=== PATIENT | female | born 1955 | race Caucasian/White ===

== ENCOUNTER 2017-07-14 13:39 | Emergency (ER) | payer OTHER ==
--- NOTE | 2017-07-14 15:00 | RAD ---
RIGHT HIP TWO VIEWS: HISTORY: Fall. Right hip injury. FINDINGS: There is complete loss of joint space with prominent subchondral sclerosis, osteophytosis, and subco rtical cystic change on each side of the joint. There is flattening and remodeling of the femoral h ead. No displaced fractures are apparent. IMPRESSION: Advanced degenerative changes of the right hip with flattening of the femoral head. Please see separate report regarding AP pelvis radiograph. POS: LEONID
--- NOTE | 2017-07-14 15:04 | RAD ---
AP PELVIS ONE VIEW: HISTORY; Fall. Pelvic injury. FINDINGS: Left hip prosthesis is in place. There is cortical irregularity with mild separation through the me dial portion of the acetabulum with approximately 0.8 cm lucency surrounding the medial margin of th e acetabular component of the left hip prosthesis. Osseous structures are demineralized. There are degenerative changes of the sacroiliac joints. Severe degenerative changes of the right hip are ap parent and better detailed on dedicated right hip radiograph. IMPRESSION: 1. Fracture of the medial aspect left acetabulum has occurred since 2012, although exact age is inde terminate. 2. Severe degenerative changes of the right hip. Findings were called to Dr. Solitario in the [facility] at 1441 hours. Code CR POS: [id number]
--- OUTSIDE RECORDS SUMMARY | 2017-07-14 15:05 | XMS | Clinical Summary ---
:1955 Author Organization [facility] Address [address] [place] [id number] Phone Care Team Providers Name Role Phone , Primary Care Provider Unavailable Allergies Not on File Current Medications Not on file Active Problems Not on file Encounters Date Type Specialty Care Team Description 07/12/2017 Orders Only Wound Care Macrina Galeana MD Arrived 06/14/2017 Orders Only Wound Care Macrina Galeana MD Arrived 05/31/2017 Orders Only Wound Care Macrina Galeana MD 05/17/2017 Orders Only Wound Care Macrina Galeana MD 05/03/2017 Orders Only Wound Care Macrina Galeana MD 04/19/2017 Orders Only Wound Care Macrina Galeana MD from Last 3 Months Social History Tobacco Use Types Packs/Day Years Used Date Never Assessed Sex Assigned at Date Recorded Not on file Last Filed Vital Signs Not on file Plan of Treatment Health Maintenance Due Date Last Done Comments INFLUENZA VACCINE 06/12/2017 Results Not on filefrom Last 3 Months
== END 2017-07-14 15:15 | disposition home or self-care (01) ==
LOC: SCSER 13:39
DX: S39.011A Strain of muscle, fascia and tendon of abdomen, initial encounter (principal); S32.402D Unspecified fracture of left acetabulum, subsequent encounter for fracture with routine healing; I48.91 Unspecified atrial fibrillation; W19.XXXA Unspecified fall, initial encounter
CPT/HCPCS: 72170

== ENCOUNTER 2017-08-24 11:47 | Outpatient (CLI) | payer OTHER ==
[2017-08-24 13:03] LABS: PTT 47.6 SEC (22.9-36.1); Prothrombin Time 28.7 SEC (12.0-14.7)
[2017-08-24 13:11] LABS: Chloride 104 mmol/L (98-107)
[2017-08-24 13:20] LABS: BUN (Urea Nitrogen) 21 mg/dL (9.8-20.1); Calc. Creatinine Clearance 0 mL/min (70-130); Calcium 9.7 mg/dL (7.8-10.44); Carbon Dioxide 27 mmol/L (23-31); Estimated GFR-MDRD 51
[2017-08-24 13:52] LABS: Anion Gap 11 mmol/L (10-20)
== END 2017-08-24 11:48 | disposition home or self-care (01) ==
LOC: LABBT 11:47
PROVIDERS: ATTEND Internal Medicine Cardiovascular Disease
DX: Z01.812 Encounter for preprocedural laboratory examination (principal); I48.1 Persistent atrial fibrillation
CPT/HCPCS: 80048; 85610; 85730

== ENCOUNTER 2017-08-25 05:58 | Day surgery (SDC) | payer OTHER ==
[2017-08-24 11:59] VITALS: BMI 28.7
[2017-08-25] MEDS ORDERED: Diprivan 20 ML ONE (07:27)
[2017-08-25] MEDS ORDERED: Glycopyrrolate 0.2 MG/ML 5 ML SYRINGE ONE (07:28)
--- NOTE | 2017-08-25 08:42 | OP ---
DATE OF PROCEDURE: 08/25/2017 INDICATION FOR PROCEDURE: A 62-year-old female status post atrial fibrillation ablation who has recu rrent atrial fibrillation and was advised by the senior sustainability advisor to undergo a cardioversion of at rial fibrillation. She has been maintained on Xarelto as well as Multaq. She was taken to the [facility] where she underwent short acting propofol with one attempt at 100 joules she did not convert to sinus rhythm following this, with possibly some degree of atrial flutter, but she did not convert . I then attempted a second attempt at 250 joules and we were successful at cardioverting her withou t any difficulties or complication. She now remains in sinus rhythm with a heart rate in the 60s.
--- NOTE | 2017-08-25 12:45 | DIS ---
This is an outpatient procedure on 08/25/2017 She was seen in the outpatient facility to undergo elective electrical cardioversion of atrial fibril lation back to sinus rhythm. She actually had undergone an ablation for atrial fibrillation on 07/08. She had been resumed on her Multaq and Xarelto at the procedure. She was then unfortunately converted back to atrial fibrillation and then was seen by labor trainer, she was advised to un dergo an electrical cardioversion of her atrial fibrillation and this was performed today. OTHER DIAGNOSES: Include paroxysmal atrial fibrillation, history of peptic ulcer disease, venous ins ufficiency of lower extremity cellulitis, obesity, hypertension and diverticulosis. She has had a hi story of former smoking and she has history of pyoderma gangrenosum. DISCHARGE DIAGNOSES: Include paroxysmal atrial fibrillation, history of peptic ulcer disease, venous insufficiency of lower extremity cellulitis, obesity, hypertension and diverticulosis. She has had a history of former smoking and she has history of pyoderma gangrenosum. PROCEDURES IN HOSPITAL: Included electrical cardioversion of atrial fibrillation. DISCHARGE MEDICATIONS: The same as her admission medications. These include pantoprazole 40 mg a da y, multivitamins, fish oil, hydrocodone 5 mg/acetaminophen 1 tablet q.4 hours p.r.n. for pain, Neuron tin 300 mg 2 tablets b.i.d., Multaq 400 mg 1 b.i.d., metoprolol ER 50 mg 1 every day, aspirin 325 mg a day, and Xarelto 20 mg q.p.m. We will at this time decrease the aspirin to 81 mg a day. There were no complications or difficulties encountered. She underwent the procedure without any sig nificant complications. During the first attempt, it was at 100 joules and now successfully converte d her with an increased up to 250 joules and then cardioverted her successfully with the attempt to 2 50 joules without complications or difficulties. I will see her back in the office in a month. She will continue her routine followups with labor trainer.
[2017-08-25] MEDS ORDERED: Propofol 200 MG/20 ML VIAL ONE (15:30)
== END 2017-08-25 09:04 | disposition home or self-care (01) ==
LOC: CCL 05:58
PROVIDERS: ATTEND Internal Medicine Cardiovascular Disease
DX: I48.0 Paroxysmal atrial fibrillation (principal); K21.9 Gastro-esophageal reflux disease without esophagitis; I10 Essential (primary) hypertension; I87.2 Venous insufficiency (chronic) (peripheral); K57.90 Diverticulosis of intestine, part unspecified, without perforation or abscess without bleeding; L88 Pyoderma gangrenosum; M19.90 Unspecified osteoarthritis, unspecified site; E66.9 Obesity, unspecified; Z68.28 Body mass index [BMI] 28.0-28.9, adult; Z87.891 Personal history of nicotine dependence; Z91.040 Latex allergy status; Z88.1 Allergy status to other antibiotic agents; Z88.8 Allergy status to other drugs, medicaments and biological substances; Z79.01 Long term (current) use of anticoagulants; Z79.899 Other long term (current) drug therapy; Z96.642 Presence of left artificial hip joint; Z98.890 Other specified postprocedural states
CPT/HCPCS: 92960; 93005; 93010; J2704

== ENCOUNTER 2017-11-04 12:17 | Outpatient (CLI) | payer OTHER | END 2017-11-04 12:18 | disposition home or self-care (01) | LOC: BICMAMMO 12:17 | PROVIDERS: ATTEND Family Medicine | DX: Z12.31 Encounter for screening mammogram for malignant neoplasm of breast (principal); Z80.3 Family history of malignant neoplasm of breast | CPT/HCPCS: 77063; 77067 ==

== ENCOUNTER 2019-04-04 09:30 | Outpatient (CLI) | payer OTHER ==
[~2019-04-04 09:30] MED LIST: Sodium Chloride 0.9% 15 ML NEB ONE
--- NOTE | 2019-04-04 17:39 | HP ---
HISTORY OF PRESENT ILLNESS: Ms. Apurva Cook is a very pleasant 63-year-old, accompanied by her granddaughter, who presents to the Wound Center for evaluation of ulcerations of the right ankle in the region of the malleoli. The patient has one ulceration in the region of the right lateral malleolus and one ulceration in the region of the right medial malleolus. The patient also has a small ulceration over the plantar surface of the right foot. The patient has been seen by Dr. Macrina Galeana for the ulceration in the region of the right medial malleolus. The patient states that most recently she has been receiving dressing changes of Medihoney alginate in conjunction with Multidex powder. She states that the ulceration has been present for approximately 4 years. For reasons related to insurance, the patient wishes to transfer her care to the [facility] in [place], [place]. PAST MEDICAL HISTORY: 1. Osteoporosis. 2. Osteoarthritis. 3. Varicose veins. 4. Diverticulosis. 5. History of pyoderma gangrenosum. 6. Peptic ulcer disease/history of upper GI bleeding. 7. Seizure disorder. 8. Anemia. 9. Hypertension. 10. Atrial fibrillation. 11. Erosive esophagitis grade C. 12. Moderate mitral regurgitation. 13. Mild pulmonary hypertension. PAST SURGICAL HISTORY: 1. Corrective surgery for left foot in high school. 2. Ear surgery as a six greater. 3. Left total hip replacement, 08/08/2006. 4. Skin graft placement. 5. Knee replacement. 6. Vein stripping. MEDICATIONS: 1. Gabapentin. 2. Metoprolol. 3. Protonix. 4. Meloxicam. 5. Aspirin. 6. Vitamin D. 7. Calcium. 8. Probiotic. ALLERGIES: PIPERACILLIN, TAZOBACTAM, PHENOBARBITAL, NAPROXEN, LATEX, AND PREGABALIN. SOCIAL HISTORY: Social history is negative for tobacco use. The patient reports the consumption of one glass of wine per day. FAMILY HISTORY: Family history significant for diabetes mellitus. The patient previously stated that she has both maternal and paternal grandparents with diabetes mellitus. Family history is negative for coronary artery disease. PHYSICAL EXAMINATION: VITAL SIGNS: Temperature 97.7, pulse 57, respirations 19, and blood pressure 158/72. GENERAL: A 63-year-old female, sitting on table in examination room, in no acute distress. HEENT: Normocephalic and atraumatic. NECK: No nuchal rigidity. CHEST: Clear to auscultation. CV: Regular rate and rhythm. ABDOMEN: Soft. EXTREMITIES: An ulceration in the region of the right medial malleolus is present, which measures approximately 5.2 x 2.9 x 0.3 cm. An ulceration in the region of the right lateral malleolus is present, which measures approximately 0.9 x 0.7 x 0.1 cm. An ulceration over the plantar surface of the right foot is present, which measures approximately 0.2 x 0.4 x 0.1 cm. Granulation tissue is present within the margins of each wound. Moderate serosanguinous drainage is associated with each wound. No purulent drainage is associated with any of the wounds. No erythema of the skin surrounding any of the wounds is present. No maceration of the skin of the periwound of any of the wounds is noted. A dorsalis pedis pulse is easily palpable on the right. No significant edema of the right foot or lower leg is present on exam today. Varicosities are present over the right and left lower legs. NEUROLOGIC: Grossly nonfocal. ASSESSMENT AND PLAN: 1. Varicose veins of lower extremities with ulcers. The patient also has a plantar ulceration of the right foot. Each wound will be dressed with Medihoney alginate followed by ABDs, Webril, and the 3M Coban 2 Layer Compression System. The patient will be receiving dressing changes of Medihoney alginate, ABDs, Webril, Augustin, and Coban at home after cleansing and irrigation with the assistance of a family member. No antibiotics will be prescribed today based upon the appearance of the wounds. I will see Ms. Cook again in 4 weeks. The patient understands and is in agreement with the preceding treatment plan. Arrangements will be made for the home delivery of dressing supplies. 2. Osteoporosis. 3. Osteoarthritis. 4. Varicose veins. 5. Diverticulosis. 6. Pyoderma gangrenosum. 7. Peptic ulcer disease/history of upper gastrointestinal bleeding. 8. Seizure disorder. 9. Anemia. 10. Hypertension. 11. Atrial fibrillation. 12. Erosive esophagitis grade C. Job ID: [id number] [facility]
== END 2019-04-04 09:31 | disposition home or self-care (01) ==
LOC: WCC 09:30
PROVIDERS: ATTEND Family Medicine
DX: I83.013 Varicose veins of right lower extremity with ulcer of ankle (principal); L97.519 Non-pressure chronic ulcer of other part of right foot with unspecified severity; L97.319 Non-pressure chronic ulcer of right ankle with unspecified severity; M81.0 Age-related osteoporosis without current pathological fracture; M19.90 Unspecified osteoarthritis, unspecified site; K57.90 Diverticulosis of intestine, part unspecified, without perforation or abscess without bleeding; L88 Pyoderma gangrenosum; K30 Functional dyspepsia; G40.909 Epilepsy, unspecified, not intractable, without status epilepticus; D64.9 Anemia, unspecified; I10 Essential (primary) hypertension; I48.91 Unspecified atrial fibrillation; K22.10 Ulcer of esophagus without bleeding
CPT/HCPCS: 29581; 99203; A4218; G0463

== ENCOUNTER 2019-05-21 12:48 | Outpatient (CLI) | payer OTHER ==
--- NOTE | 2019-05-21 13:44 | MMO ---
Bilateral MAMMO Bilat Screen DDI+LOI. CLINICAL HISTORY: Patient is 63 years old and is seen for screening. The patient has the following family history of breast cancer: paternal grandmother and maternal grandmother. The patient has no personal history of cancer. VIEWS: The views performed were: bilateral craniocaudal with tomosynthesis; bilateral mediolateral oblique with tomosynthesis; and left exaggerated craniocaudal. FILMS COMPARED: The present examination has been compared to prior imaging studies performed at [facility] on 10/07/2016, 10/14/2016, 05/18/2017 and 11/04/2017. MAMMOGRAM FINDINGS: The breasts are heterogeneously dense, which could obscure a lesion on mammography. There are no suspicious masses, suspicious calcifications, or new areas of architectural distortion. IMPRESSION: THERE IS NO MAMMOGRAPHIC EVIDENCE OF MALIGNANCY. A ROUTINE FOLLOW-UP MAMMOGRAM IN 1 YEAR IS RECOMMENDED. THE RESULTS OF THIS EXAM WERE SENT TO THE PATIENT. ACR BI-RADS Category 1 - Negative MAMMOGRAPHY NOTE: 1. A negative mammogram report should not delay a biopsy if a dominant of clinically suspicious mass is present. 2. Approximately 10% to 15% of breast cancers are not detected by mammography. 3. Adenosis and dense breasts may obscure an underlying neoplasm. Reported by: ROEL GOMEZ MD Electonically Signed: [id number]
== END 2019-05-21 12:49 | disposition home or self-care (01) ==
LOC: BICMAMMO 12:48
PROVIDERS: ATTEND Family Medicine
DX: Z12.31 Encounter for screening mammogram for malignant neoplasm of breast (principal); Z80.3 Family history of malignant neoplasm of breast
CPT/HCPCS: 77063; 77067

== ENCOUNTER 2019-06-18 13:36 | Outpatient (CLI) | payer OTHER ==
--- NOTE | 2019-06-18 16:34 | PRG ---
DATE OF SERVICE: 06/18/2019 HISTORY: Ms. Apurva Cook is a very pleasant 63-year-old, accompanied by her granddaughter, who presents to the Wound Center for evaluation of ulcerations of the right ankle in the region of the malleoli. The patient has 1 ulceration in the region of the right lateral malleolus and 1 ulceration in the region of the right medial malleolus. The patient has been seen by Dr. Macrina Galeana for the ulceration in the region of the right medial malleolus. Prior to being seen in the Wound Center, the patient had been receiving dressing changes of Medihoney alginate in conjunction with Multidex powder. She stated that the ulceration had been present for approximately 4 years. After being seen in the Wound Center here at [facility], the patient was placed on dressing changes of Medihoney alginate, ABDs, Webril, and the 3M Coban 2 Layer Compression System. The patient's daughter has been assisting Ms. Cook with dressing changes. PHYSICAL EXAMINATION: VITAL SIGNS: Temperature 98.2, pulse 52, respirations 18, blood pressure 123/59. EXTREMITIES: An ulceration in the region of the medial malleolus is present, which measures approximately 4.0 x 5.8 cm. The dimensions of the wound at the time of the patient's last visit were approximately 6.0 x 3.7 cm. An ulceration in the region of the right lateral malleolus is present, which measures approximately 1.1 x 1.6 cm. The dimensions of the wound at the time of the patient's last visit were approximately 1.3 x 0.9 cm. Granulation tissue is present within the margins of each wound. No purulent drainage is associated with either wound. No erythema of the skin surrounding either wound is present. No maceration of the skin of the periwound of either wound is noted. No significant edema of the right foot or lower leg is present on exam today. ASSESSMENT AND PLAN: 1. Varicose veins of lower extremities with ulcers. Dressing changes of Silvadene followed by Aquacel, ABD, Webril, Kerlix, and Coban will be continued. The patient states she will reschedule her evaluation for venous ablation. I will see Ms. Cook after her evaluation for venous ablation and any necessary treatment is complete. 2. Osteoporosis. 3. Osteoarthritis. 4. Varicose veins. 5. Diverticulosis. 6. Pyoderma gangrenosum. 7. Peptic ulcer disease/history of upper gastrointestinal bleeding. 8. Seizure disorder. 9. Anemia. 10. Hypertension. 11. Atrial fibrillation. 12. Erosive esophagitis, grade C. Job ID: [id number]
== END 2019-06-18 13:37 | disposition home or self-care (01) ==
LOC: WCC 13:36
PROVIDERS: ATTEND Family Medicine
DX: I83.013 Varicose veins of right lower extremity with ulcer of ankle (principal); I83.018 Varicose veins of right lower extremity with ulcer other part of lower leg; I83.029 Varicose veins of left lower extremity with ulcer of unspecified site; M81.0 Age-related osteoporosis without current pathological fracture; M19.90 Unspecified osteoarthritis, unspecified site; K57.90 Diverticulosis of intestine, part unspecified, without perforation or abscess without bleeding; L88 Pyoderma gangrenosum; R56.9 Unspecified convulsions; D64.9 Anemia, unspecified; I10 Essential (primary) hypertension; I48.91 Unspecified atrial fibrillation; K22.10 Ulcer of esophagus without bleeding; K27.9 Peptic ulcer, site unspecified, unspecified as acute or chronic, without hemorrhage or perforation
CPT/HCPCS: 97602

== ENCOUNTER 2019-08-22 13:15 | Outpatient (CLI) | payer OTHER ==
--- NOTE | 2019-08-22 14:38 | PRG ---
DATE OF SERVICE: 08/22/2019 SUBJECTIVE: Ms. Apurva Cook is a very pleasant 64-year-old accompanied by her granddaughter, who presents to the wound center for evaluation of ulcerations of the right ankle in the region of the malleolus. The patient has 1 ulceration in the region of the right lateral malleolus and 1 ulceration in the region of the right medial malleolus. The patient has been seen by Dr. Macrina Galeana for the ulceration in the region of the right medial malleolus. Prior to being seen in the wound center, the patient had been receiving dressing changes of Medihoney alginate in conjunction with Multidex powder. She stated that the ulceration had been present for approximately 4 years. After being seen in the wound center here at [facility], the patient was placed on dressing changes of Medihoney alginate, ABDs, Webril, and the 3M Coban 2 Layer Compression System. More recently, the patient has been receiving dressing changes of Silvadene and Aquacel for her malleolar wounds. The patient states that she developed an infectious process associated with her wounds, for which she was seen by Dr. Saxena. The patient states that cultures were obtained, and the patient was placed on p.o. ciprofloxacin. At this time, the patient was also referred to the wound center for further evaluation and treatment. OBJECTIVE: VITAL SIGNS: Temperature 98.6, pulse 109, respirations 18, blood pressure 175/97. EXTREMITIES: An ulceration in the region of the medial malleolus is present, which measures approximately 7.0 x 7.0 cm. An ulceration in the region of the right lateral malleolus is present, which measures approximately 1.7 x 1.4 cm. Granulation tissue is present within the margins of each wound. A biofilm is present within the margins of each wound. No cellulitis of the right or left lower leg is appreciated. No maceration of the skin of the periwound of either wound is noted. No significant edema of the right foot or lower leg is present on exam today. ASSESSMENT AND PLAN: 1. Varicose veins of lower extremities with ulcers. Dressing changes of Silvadene followed by Aquacel, ABD, Webril, Kerlix, and Coban will be continued. Arrangements for dressing changes with the assistance of Home Health have been made by Dr. Saxena. The patient states that she is to undergo venous ablation on the right and on the left. Plain films of the right lower leg and ankle will be obtained to look for findings suggestive of osteomyelitis. Arrangements will also be made for the home delivery of Santyl. I will see Ms. Cook again in 1 week. The patient has been reminded to continue ciprofloxacin as previously prescribed. 2. Osteoporosis. 3. Osteoarthritis. 4. Varicose veins. 5. Diverticulosis. 6. Pyoderma gangrenosum. 7. Peptic ulcer disease/history of upper gastrointestinal bleeding. 8. Seizure disorder. 9. Anemia. 10. Hypertension. 11. Atrial fibrillation. 12. Erosive esophagitis, grade C. Job ID: [id number]
--- NOTE | 2019-08-22 15:39 | RAD ---
XR Ankle Rt 3 View STANDARD History: Chronic wound Comparison: None. Findings: No acute fracture or malalignment. Extensive medial and lateral malleolus soft tissue swell ing with concern for a soft tissue wound along the lateral malleolus. Old posterior malleolar fracture. Numerous soft tissue phleboliths. Impression: Chronic findings. No acute fracture. If there is concern for osteomyelitis, MRI is recomm ended.
== END 2019-08-22 13:16 | disposition home or self-care (01) ==
LOC: WCC 13:15 → RAD 13:16
PROVIDERS: ATTEND Family Medicine
DX: I87.331 Chronic venous hypertension (idiopathic) with ulcer and inflammation of right lower extremity (principal); L97.919 Non-pressure chronic ulcer of unspecified part of right lower leg with unspecified severity; M81.0 Age-related osteoporosis without current pathological fracture; M19.90 Unspecified osteoarthritis, unspecified site; K57.90 Diverticulosis of intestine, part unspecified, without perforation or abscess without bleeding; L88 Pyoderma gangrenosum; K30 Functional dyspepsia; G40.909 Epilepsy, unspecified, not intractable, without status epilepticus; D64.9 Anemia, unspecified; I10 Essential (primary) hypertension; I48.91 Unspecified atrial fibrillation; K22.10 Ulcer of esophagus without bleeding
CPT/HCPCS: A4218

== ENCOUNTER 2019-08-30 13:48 | Outpatient (CLI) | payer OTHER ==
--- NOTE | 2019-08-30 15:53 | PRG ---
DATE OF SERVICE: 08/30/2019 HISTORY: Ms. Apurva Cook is a very pleasant 64-year-old accompanied by her granddaughter, who presented to the wound center for evaluation of ulcerations of the right ankle in the region of the malleolus. The patient has 1 ulceration in the region of the right lateral malleolus and 1 ulceration in the region of the right medial malleolus. The patient has been seen by for the ulceration in the region of the right medial malleolus. Prior to being seen in the Wound Center, the patient had been receiving dressing changes of Medihoney alginate in conjunction with Multidex powder. She stated that the ulceration had been present for approximately 4 years. After being seen in the wound center here at [facility], the patient was placed on dressing changes of Medihoney alginate, ABDs, Webril, and the 3M Coban 2 Layer Compression System. More recently, the patient has been receiving dressing changes of Silvadene or Aquacel for her malleolar wounds. The patient stated at the time of her last visit that she developed an infectious process associated with her wounds, for which she was seen by Dr. Saxena. The patient stated that cultures were obtained, and the patient was placed on p.o. ciprofloxacin. At this time, the patient was also referred to the Wound Center for further evaluation and treatment. PHYSICAL EXAMINATION: VITAL SIGNS: Temperature 98.6, pulse 85, respirations 19, and blood pressure 122/57. EXTREMITIES: An ulceration in the region of the medial malleolus is present, which measures approximately 6.5 x 6.8 cm. An ulceration in the region of the right lateral malleolus is present, which measures approximately 1.7 x 1.1 cm. The dimensions of these wounds at the time of the patient's last visit were approximately 7.0 x 7.0 cm and 1.7 x 1.4 cm respectively. Granulation tissue is present within the margins of each wound. No purulent drainage is associated with either wound. No cellulitis of the right lower leg is appreciated. No maceration of the skin of the periwound of either wound is noted. No significant edema of the right foot or lower leg is present on exam today. ASSESSMENT AND PLAN: 1. Varicose veins of lower extremities with ulcers. Dressing changes of Silvadene or Aquacel, followed by an ABD, Webril, Kerlix, and Coban will be continued. Arrangements for dressing changes with the assistance of Home Health were made previously by Dr. Saxena. Again, the patient states that she is to undergo venous ablation on the right and on the left. Plain films of the right lower leg and ankle revealed no findings suggestive of osteomyelitis. The patient is to undergo MRI later this month. The patient states she has already obtained a followup appointment in the Wound Center after MRI has been obtained. 2. Osteoporosis. 3. Osteoarthritis. 4. Varicose veins. 5. Diverticulosis. 6. Pyoderma gangrenosum. 7. Peptic ulcer disease/history of upper gastrointestinal bleeding. 8. Seizure disorder. 9. Anemia. 10. Hypertension. 11. Atrial fibrillation. 12. Erosive esophagitis, grade C. Job ID: [id number]
== END 2019-08-30 13:49 | disposition home or self-care (01) ==
LOC: WCC 13:48
PROVIDERS: ATTEND Family Medicine
DX: I83.018 Varicose veins of right lower extremity with ulcer other part of lower leg (principal); M81.0 Age-related osteoporosis without current pathological fracture; M19.90 Unspecified osteoarthritis, unspecified site; R56.9 Unspecified convulsions; D64.9 Anemia, unspecified; I48.91 Unspecified atrial fibrillation; K22.10 Ulcer of esophagus without bleeding; I10 Essential (primary) hypertension; K27.9 Peptic ulcer, site unspecified, unspecified as acute or chronic, without hemorrhage or perforation; L88 Pyoderma gangrenosum; K57.90 Diverticulosis of intestine, part unspecified, without perforation or abscess without bleeding
CPT/HCPCS: A4218

== ENCOUNTER 2019-09-03 08:11 | Outpatient (CLI) | payer OTHER ==
--- NOTE | 2019-09-03 10:17 | MRI ---
MRI Lower Ext Jt Rt W WO Con HISTORY: Chronic wounds of right ankle. Wounds have been worsening. Evaluation for osteomyelitis. COMPARISON: Right ankle plain film examination of 08/22/2019. FINDINGS: There are soft tissue edema changes noted. Superficial soft tissue changes along the medial malleolus are seen. There is some chronic bony periosteal change of the tibia and fibula there is no evidence for osteomyelitis. IMPRESSION: No MR evidence for osteomyelitis.
== END 2019-09-03 08:12 | disposition home or self-care (01) ==
LOC: MRI 08:11
PROVIDERS: ATTEND Family Medicine
DX: S91.001D Unspecified open wound, right ankle, subsequent encounter (principal)

== ENCOUNTER 2020-02-25 07:30 | Outpatient (CLI) | payer OTHER ==
[2020-02-25 16:21] LABS: INR-International Normal Ratio 1.2; PTT 32.2 sec (22.9-36.1); Prothrombin Time 15.5 sec (12.0-14.7)
[2020-02-25 16:38] LABS: Hemoglobin 11.4 g/dL (12.0-16.0); Mean Corpuscular HGB CONC 31.6 g/dL (32.0-36.0); Mean Corpuscular Hemoglobin 29.7 pg (27.0-31.0); Mean Corpuscular Volume 94.1 fL (78.0-98.0); Mean Platelet Volume 8.1 fL (7.4-10.4); Platelet Count 309 thou/uL (130-400); Red Blood Cell (RBC) Count 3.84 mill/uL (4.20-5.40); White Blood Cell (WBC) Count 4.2 thou/uL (4.8-10.8)
[2020-02-25 17:54] LABS: Anion Gap 12 mmol/L (10-20); BUN (Urea Nitrogen) 22 mg/dL (9.8-20.1); Calc. Creatinine Clearance 0 mL/min (70-130); Calcium 9.3 mg/dL (7.8-10.44); Carbon Dioxide 24 mmol/L (23-31); Chloride 106 mmol/L (98-107); Estimated GFR-MDRD 44; Glucose 97 mg/dL (80-115); Potassium 4.4 mmol/L (3.5-5.1); Sodium 138 mmol/L (136-145)
[2020-02-26 13:11] LABS: SARS-CoV-2 MS2 Positive; SARS-CoV-2 N Gene Negative; SARS-CoV-2 S Gene Negative; SARS-CoV-2 orf1ab Negative
--- NOTE | 2020-02-27 19:35 | EKG ---
Test Reason : POST ABLATION Blood Pressure : / mmHG Vent. Rate : 072 BPM Atrial Rate : 072 BPM P-R Int : 184 ms QRS Dur : 090 ms QT Int : 448 ms P-R-T Axes : 068 -30 212 degrees QTc Int : 490 ms Normal sinus rhythm Left axis deviation Prolonged QT Abnormal ECG When compared with ECG of 25-AUG-2017 08:18, Abberant conduction is no longer Present Confirmed by DR. Hank RUIZ ([id number]) on 02/27/2020 7:35:24 PM Referred By: [facility] Confirmed By:DR. Hank RUIZ
== END 2020-02-25 07:31 | disposition home or self-care (01) ==
LOC: LABBT 07:30
PROVIDERS: ATTEND Internal Medicine Cardiovascular Disease
DX: Z01.818 Encounter for other preprocedural examination (principal); Z11.59 Encounter for screening for other viral diseases; I48.91 Unspecified atrial fibrillation
CPT/HCPCS: 80048; 85027; 85610; 85730; 87635; 93005; 93010; U0003

== ENCOUNTER 2020-02-27 05:51 | Observation (INO) | payer OTHER ==
[2020-02-27] MEDS ORDERED: Fentanyl 100 MCG/2 ML VIAL ONE ×2 (07:32→15:57)
[2020-02-27] MEDS ORDERED: Phenylephrine 10 MG/ML VIAL ONE (07:38)
[2020-02-27] MEDS ORDERED: Heparin 10,000 UNITS/1 ML VIAL ONE ×2 (07:38→08:37)
[2020-02-27] MEDS ORDERED: Isoproterenol 0.2 MG/1 ML AMP ONE (08:40)
[2020-02-27] MEDS ORDERED: Heparin 25,000 units/D5W 500 ML ONE (08:40)
[2020-02-27] MEDS ORDERED: Promethazine HCl 25 MG/ML VIAL SLOW IVP PRN (10:24)
[2020-02-27] MEDS ORDERED: Promethazine HCl 25 MG/ML VIAL IM PRN (10:24)
[2020-02-27] MEDS ORDERED: Ondansetron HCl/PF 4 MG/2 ML Vial IVP PRN (10:24)
[2020-02-27] MEDS ORDERED: Protamine Sulfate 50 MG/5 ML VIAL ONE (10:33)
[2020-02-27] MEDS ORDERED: PHENYLEPHRINE-NS 100 MCG/ML 10 ML SYRINGE ONE (11:55)
[2020-02-27] MEDS ORDERED: Rocuronium Bromide 10 MG/ML (10ML VIAL) ONE (11:55)
[2020-02-27] MEDS ORDERED: Succinylcholine Chloride 20 MG/ML 10 ml SYRINGE FS ONE (11:55)
[2020-02-27] MEDS ORDERED: PROPOFOL 200 MG/20 ML VIAL ONE (11:55)
[2020-02-27] MEDS ORDERED: Acetaminophen/Codeine 30-300mg Tablet PO PRN (12:45)
[2020-02-27] MEDS ORDERED: Meperidine HCl/PF 25 MG/ML VIAL ONE (12:50)
[2020-02-27] MEDS ORDERED: Ketorolac Tromethamine 30 MG/ML VIAL IVP PRN (12:52)
--- NOTE | 2020-02-27 15:09 | OP ---
DATE OF PROCEDURE: 02/27/2020 PROCEDURES PERFORMED: Electrophysiology study and radiofrequency ablation. REASON FOR PROCEDURE: Ms. Cook is a 64-year-old woman with history of persistent atrial fibrillation, prior ablation in 2017, and had recurrent atrial fibrillation despite antiarrhythmic agents. She is here for repeat left atrial ablation. She also has mild AI, moderate to severe MR, moderate TR, but preserved LVEF 50% to 55% on echo in November 2019. DESCRIPTION OF PROCEDURE: The patient received general anesthesia by Anesthesia specialist. The left and right femoral veins were prepped, draped, and anesthetized with subcutaneous lidocaine. Under ultrasound guidance, both femoral veins were cannulated x2. On the left side, an 11-Mozambican sheath was used to advance an intracardiac echocardiogram probe to the right atrium, it was used to monitor the transeptal procedure, catheter manipulations, and the pericardial space throughout the case. Also on the right side, a Preface sheath was used to advance a 20- pole Duo-Deca catheter into the right atrium and CS positions. From the right side, initially two 8-Mozambican short sheaths were introduced, through which a ThermoCool SFST catheter was advanced to the right atrium and 3D map of the right atrium was obtained. Following that, IV heparin was administered in a bolus and drip fashion and it was adjusted throughout the case to keep the ACT over 350. Transseptal punctures were performed after exchanging the short right-sided sheaths to two SL1 sheaths. A powered Kanga transseptal needle was used. Ultrasound and fluoroscopic monitoring were performed. Through the SL1 sheaths, a ThermoCool SFST and a PentaRay catheter were advanced to the left atrium. 3D map of the left atrium voltage map was obtained. Reconnection of the right inferior pulmonary vein was seen, also some signals were noted on the left superior pulmonary vein base. Additional lesions were placed in these areas as well as in the posterior wall and all 4 pulmonary veins and the posterior wall were isolated. The base of left atrium was also ablated and isolated. Additional lesions were placed in the anterior septum by the right superior and inferior pulmonary veins. Further ablation lesions were delivered at the CS roof from the left atrium and also at the ligament of Jw area as well. Despite these efforts, the patient remained in atrial fibrillation. Cardioversion was necessary to restore sinus rhythm with a 360-joule shock. Throughout the posterior wall wolf, an esophageal temperature probe was used to monitor temperatures and avoid excessive heating. Also extra irrigation was performed for any spots proximal to the esophagus. Following that, no further left-sided PACs were seen after Isuprel administration with up to 20 mcg for 10 minutes. Any reconnections re-ablated and the catheter was withdrawn to the right side. PACs were observed from the superior vena cava as well as CS os area. Both areas were further ablated, the CS at 30 danielson and the base of SVC at 40 danielson. Before each burn in the SVC area, high-voltage pacing was performed to assess for diaphragmatic capture to avoid diaphragmatic nerve damage with the ablation. The SVC was succesfully isolated. The distal coronary sinus was isolated as well as the proximal coronary sinus signals were also eliminated. Some residual CS signals were seen in CS5-8 area. Normal His-Purkinje and AV karyn function were seen with HV interval 56 milliseconds, AV Wenckebach 260 milliseconds, and no VA conduction was seen up to 700 millisecond cycle length pacing. No additional atrial arrhythmia was induced with burst atrial pacing on and off Isuprel. A total of 29 minutes and 31 seconds of ablation lesion was delivered with 75 lesions placed. 792 fluid irrigation volume was given. At the end of the case, the patient was free of PACs, remained in sinus rhythm. The pericardial space was rechecked and no significant change in the intracardiac echo images was seen and our cardiac silhouette also did not change significantly. Protamine was administered to reverse IV heparin effect. The long sheaths were exchanged for short sheaths and Vascade closure was performed in all 4 femoral venous area. CONCLUSION: 1. Successful re-isolation of the right inferior and left superior veins. The other two pulmonary veins were remained isolated from prior ablation. 2. Posterior wall was also re-isolated. 3. Inferior base of left atrium over CS roof was also isolated. 4. The right septum was ablated as well. 5. Isolation of the superior vena cava performed. 6. Partial isolation of the coronary sinus was performed. 7. Severe left atrial scarring was seen. PLAN: Resume oral anticoagulation. Monitor for recurrent arrhythmias. Hold off antiarrhythmic agents. Job ID: [id number] [facility]
[2020-02-27] MEDS ORDERED: Sodium Chloride 0.9% 10 ML ONE (15:59)
[2020-02-27 20:00] VITALS: BMI 28.2
[2020-02-27] MEDS: Sucralfate 1 GM TAB PO SCH ×2 (20:05→20:07)
[2020-02-27] MEDS: Folic Acid 1 MG TAB PO SCH (20:08)
[2020-02-27] MEDS: Sulfameth/Trimethoprim DS 800-160mg TAB PO SCH (20:16)
[2020-02-27] MEDS ORDERED: Rivaroxaban 10 MG TAB PO SCH (21:00)
[2020-02-27] MEDS ORDERED: HYDROcodone/Acetaminophen 7.5/325 mg Tablet PO SCH (21:00)
[2020-02-28] MEDS: Acetaminophen/Codeine 30-300mg Tablet PO PRN ×2 (02:46→08:39)
[2020-02-28 07:58] VITALS: BP 111/51; TEMP 100.1
[2020-02-28] MEDS: Folic Acid 1 MG TAB PO SCH (08:29)
[2020-02-28] MEDS: Sulfameth/Trimethoprim DS 800-160mg TAB PO SCH (08:34)
[2020-02-28] MEDS: Sucralfate 1 GM TAB PO SCH (08:34)
--- NOTE | 2020-02-29 03:40 | DIS ---
DATE OF ADMISSION: 02/27/2020 DATE OF DISCHARGE: 02/28/2020 DIAGNOSIS: Atrial fibrillation, persistent. PROCEDURE PERFORMED: Include three dimensional mapping and electrophysiology study with radiofrequency ablation of the left atria and for atrial fibrillation. HISTORY OF PRESENT ILLNESS: Ms. Cook is a 64-year-old woman with a history of persistent atrial fibrillation, previously ablated in 2017. She had recurrent atrial fibrillation despite antiarrhythmic therapy with Multaq and elected for repeat left atrial ablation. She also has a history of valvular disease with moderate to severe MR and mild AI and moderate TR with a preserved EF of 50% to 55% by recent echo. During her ablation, she received a total of 29 minutes 31 seconds ablation time with 75 lesions placed. She required re-isolation of the right inferior and left superior veins. The two remaining pulmonary veins remained electrically silent and isolated from prior ablation. Posterior wall was also re-isolated. Additional ablation was placed inferior base of the left atrium over the CS roof, right septum, isolation of the SVC, partial isolation, coronary sinus. Overall severe left atrial scarring was noted. The patient required cardioversion to restore sinus rhythm with a 360 joule shock. She has done well post ablation with no postoperative complications with bleeding at the groin site. She feels well, but on telemetry is seen to have nonsustained early recurrence of atrial fibrillation with RVR. SUBJECTIVE: Ms. Cook denies any heart racing, palpitations, chest pain, pressure, syncope, stroke, stroke-like symptoms, bleeding at the groin sites, shortness of breath, nausea, vomiting, food intolerance, difficulty ambulating. She feels stable and is eager to discharge home. OBJECTIVE: VITAL SIGNS: Temperature 99.8, pulse 78, blood pressure 101/50, respirations 16, and oxygen 94% on room air. GENERAL: The patient is alert and oriented. Speech is clear. Affect is appropriate. No apparent distress. Attending exam. Vital signs are stable. HEART: Rate is regularly regular with crisp S1 and S2. PMI nondisplaced. LUNGS: Clear to auscultation bilaterally. No adventitious lung sounds. ABDOMEN: Soft and nontender. No masses. Positive bowel tones. Hepatojugular reflux is negative. EXTREMITIES: Warm and dry to touch. Well perfused without clubbing, cyanosis, or edema. NEUROLOGIC: Grossly intact and nonfocal. Bilateral groin sites are stable without evidence of bleeding or hematoma. Gait is stable. DISCHARGE MEDICATIONS: Resume home medications of: 1. Folic acid. 2. Xarelto 20 mg q.p.m. 3. Metoprolol 100 mg daily. 4. Metoprolol succinate 100 mg daily. 5. Protonix as previously prescribed. 6. Multaq 400 mg p.o. b.i.d. 7. New prescription for Lasix 40 mg p.o. p.r.n. edema to be taken with K-Dur 20 mEq. 8. Carafate 1 g before meals and at bedtime x2 weeks and Protonix 40 mg daily x30 days. DISCHARGE INSTRUCTIONS: No driving or soaking baths until bilateral groin sites are healed. No lifting more than 10 to 15 pounds for 1 week, then resume activity gradually and as tolerated. Monitor for recurrent arrhythmias and contact [facility] with any postablation concerns. No missed doses of anticoagulation. If she experience bleeding issues, contact our office or go to the emergency room if severe. Follow up in 6 weeks will be arranged. Job ID: [id number] [facility]
== END 2020-02-28 11:50 | disposition home or self-care (01) ==
LOC: CCL 05:51 → 2NO 12:31 → CCL 19:33 → 2NO 19:33
PROVIDERS: ADMIT Internal Medicine Cardiovascular Disease; ATTEND Internal Medicine Cardiovascular Disease
PROC: 02583ZZ Destruction of Conduction Mechanism, Percutaneous Approach (ICD-10-PCS; principal; 2020-02-27)
PROC: 02K83ZZ Map Conduction Mechanism, Percutaneous Approach (ICD-10-PCS; 2020-02-27)
PROC: 4A023FZ Measurement of Cardiac Rhythm, Percutaneous Approach (ICD-10-PCS; 2020-02-27)
PROC: 4A0234Z Measurement of Cardiac Electrical Activity, Percutaneous Approach (ICD-10-PCS; 2020-02-27)
DX: I48.19 Other persistent atrial fibrillation (principal); I10 Essential (primary) hypertension; M81.0 Age-related osteoporosis without current pathological fracture; K21.9 Gastro-esophageal reflux disease without esophagitis; M19.90 Unspecified osteoarthritis, unspecified site; I08.1 Rheumatic disorders of both mitral and tricuspid valves; Z79.01 Long term (current) use of anticoagulants; Z79.83 Long term (current) use of bisphosphonates; Z79.899 Other long term (current) drug therapy; Z88.1 Allergy status to other antibiotic agents; Z88.6 Allergy status to analgesic agent; Z88.8 Allergy status to other drugs, medicaments and biological substances; Z91.040 Latex allergy status
CPT/HCPCS: 76942; 85347; 92960; 93005; 93613; 93622; 93623; 93656; 93657; 93662; C1732; C1759; C1884; J1644; J2175; J2370; J2704; J2720; J3010

== ENCOUNTER 2020-04-08 12:58 | Outpatient (CLI) | payer OTHER ==
[2020-04-08 16:37] LABS: #Eosinphils 0.1 thou/uL (0.0-0.7); #Lymphocytes 2.3 thou/uL (1.20-3.40); #Monocytes 0.4 thou/uL (0.11-0.59); #Neutrophils 2.1 thou/uL (1.40-6.50); %Basophils 0.4 % (0.0-1.0); %Eosinophils 1.7 % (0.0-10.0); %Lymphocytes 46.5 % (21.0-51.0); %Monocytes 8.9 % (0.0-10.0); %Neutrophils 42.4 % (42.0-75.0); Hemoglobin 10.6 g/dL (12.0-16.0); Mean Corpuscular HGB CONC 31.8 g/dL (32.0-36.0); Mean Corpuscular Hemoglobin 30.3 pg (27.0-31.0); Mean Corpuscular Volume 95.2 fL (78.0-98.0); Mean Platelet Volume 7.9 fL (7.4-10.4); Platelet Count 286 thou/uL (130-400); RBC Distribution Width 11.7 % (11.5-14.5); White Blood Cell (WBC) Count 4.8 thou/uL (4.8-10.8)
[2020-04-08 16:42] LABS: Prothrombin Time 22.4 sec (12.0-14.7)
[2020-04-08 16:43] LABS: PTT 46.9 sec (22.9-36.1)
[2020-04-08 17:19] LABS: Anion Gap 14 mmol/L (10-20); BUN (Urea Nitrogen) 19 mg/dL (9.8-20.1); Calc. Creatinine Clearance 0 mL/min (70-130); Calcium 9.1 mg/dL (7.8-10.44); Carbon Dioxide 25 mmol/L (23-31); Chloride 104 mmol/L (98-107); Estimated GFR-MDRD 51; Glucose 103 mg/dL (80-115); Potassium 3.9 mmol/L (3.5-5.1); Sodium 139 mmol/L (136-145)
[2020-04-09 11:46] LABS: SARS-CoV-2 MS2 Positive; SARS-CoV-2 N Gene Negative; SARS-CoV-2 S Gene Negative; SARS-CoV-2 by NAA Not Detected (NotDetected); SARS-CoV-2 orf1ab Negative
== END 2020-04-08 12:59 | disposition home or self-care (01) ==
LOC: LABBT 12:58
PROVIDERS: ATTEND Internal Medicine Cardiovascular Disease
DX: Z01.818 Encounter for other preprocedural examination (principal); Z11.59 Encounter for screening for other viral diseases; I48.91 Unspecified atrial fibrillation
CPT/HCPCS: 80048; 85025; 85610; 85730; 87635; 93005; 93010; U0003

== ENCOUNTER 2020-04-11 10:01 | Day surgery (SDC) | payer OTHER ==
[2020-04-09 13:36] VITALS: BMI 27.1
[2020-04-11] MEDS ORDERED: PROPOFOL 20 ML ONE (12:09)
[2020-04-11] MEDS ORDERED: Lidocaine 1% PF 5 ML VIAL ONE (12:09)
--- NOTE | 2020-04-11 13:18 | OP ---
DATE OF PROCEDURE: 04/11/2020 PROCEDURE PERFORMED: DC cardioversion. CLINICAL INDICATION: Atypical flutter. ASA CLASSIFICATION: II. ANESTHESIA: Total IV anesthesia per anesthesiologist. ADDITIONAL CARDIAC MEDICATIONS: None. ACUTE COMPLICATIONS: None. METHOD: After informed consent was obtained, the patient was taken to the PACU in a fasting state across the chest in modified AP position. When the patient was fully sedated, 70 joules was delivered restoring sinus rhythm. IMPRESSION: Successful DC cardioversion. RECOMMENDATION: Discharge home when fully awake. Job ID: [id number]
== END 2020-04-11 13:44 | disposition home or self-care (01) ==
LOC: CCL 10:01
PROVIDERS: ATTEND Internal Medicine Cardiovascular Disease
PROC: 5A2204Z Restoration of Cardiac Rhythm, Single (ICD-10-PCS; principal; 2020-04-11)
DX: I48.4 Atypical atrial flutter (principal); I48.91 Unspecified atrial fibrillation; I10 Essential (primary) hypertension; K21.9 Gastro-esophageal reflux disease without esophagitis; M81.0 Age-related osteoporosis without current pathological fracture; Z79.01 Long term (current) use of anticoagulants; Z79.83 Long term (current) use of bisphosphonates; Z79.899 Other long term (current) drug therapy; Z88.1 Allergy status to other antibiotic agents; Z88.2 Allergy status to sulfonamides; Z88.6 Allergy status to analgesic agent; Z88.8 Allergy status to other drugs, medicaments and biological substances; Z91.040 Latex allergy status
CPT/HCPCS: 92960; 93005; 93010; J2704

== ENCOUNTER 2020-06-11 11:36 | Outpatient (CLI) | payer OTHER ==
--- NOTE | 2020-06-11 12:28 | MMO ---
Bilateral MAMMO Bilat Screen [facility]DI[facility]LOI. CLINICAL HISTORY: Patient is 64 years old and is seen for screening. The patient has the following family history of breast cancer: paternal grandmother and maternal grandmother. The patient has no personal history of cancer. VIEWS: The views performed were: bilateral craniocaudal with tomosynthesis and bilateral mediolateral oblique with tomosynthesis. FILMS COMPARED: The present examination has been compared to prior imaging studies performed at [facility] on 10/14/2016, 05/18/2017, 11/04/2017 and 05/21/2019. This study has been interpreted with the assistance of computer-aided detection. MAMMOGRAM FINDINGS: The breasts are heterogeneously dense, which could obscure a lesion on mammography. There are no suspicious masses, suspicious calcifications, or new areas of architectural distortion. IMPRESSION: THERE IS NO MAMMOGRAPHIC EVIDENCE OF MALIGNANCY. A ROUTINE FOLLOW-UP MAMMOGRAM IN 1 YEAR IS RECOMMENDED. THE RESULTS OF THIS EXAM WERE SENT TO THE PATIENT. ACR BI-RADS Category 1 - Negative MAMMOGRAPHY NOTE: 1. A negative mammogram report should not delay a biopsy if a dominant of clinically suspicious mass is present. 2. Approximately 10% to 15% of breast cancers are not detected by mammography. 3. Adenosis and dense breasts may obscure an underlying neoplasm. Reported by: BECCA SULLIVAN MD Electonically Signed: [id number]
== END 2020-06-11 11:37 | disposition home or self-care (01) ==
LOC: BICMAMMO 11:36
PROVIDERS: ATTEND Family Medicine
DX: Z12.31 Encounter for screening mammogram for malignant neoplasm of breast (principal); Z80.3 Family history of malignant neoplasm of breast
CPT/HCPCS: 77063; 77067

== ENCOUNTER 2021-07-24 12:57 | Outpatient (CLI) | payer BC, OTHER | END 2021-07-24 12:58 | disposition home or self-care (01) | LOC: BICMAMMO 12:57 | PROVIDERS: ATTEND Family Medicine | DX: Z12.31 Encounter for screening mammogram for malignant neoplasm of breast (principal); Z80.3 Family history of malignant neoplasm of breast | CPT/HCPCS: 77063; 77067 ==

== ENCOUNTER 2021-10-30 19:28 | Inpatient (IN) | payer MEDICARE ==
[~2021-10-30 19:28] MED LIST changes: +Iopamidol 370 76% 100 ML VIAL ONE; -Sodium Chloride 0.9% 15 ML NEB ONE
[2021-10-30 20:07] LABS: #Eosinphils 0.1 thou/uL (0.0-0.7); #Lymphocytes 2.3 thou/uL (1.20-3.40); #Monocytes 0.7 thou/uL (0.11-0.59); #Neutrophils 5.4 thou/uL (1.40-6.50); %Basophils 0.4 % (0.0-1.0); %Eosinophils 1.3 % (0.0-10.0); %Lymphocytes 27.1 % (21.0-51.0); %Monocytes 8.2 % (0.0-10.0); %Neutrophils 63.1 % (42.0-75.0); Hemoglobin 11.6 g/dL (12.0-16.0); Mean Corpuscular HGB CONC 31.8 g/dL (32.0-36.0); Mean Corpuscular Hemoglobin 31.2 pg (27.0-31.0); Mean Corpuscular Volume 98.1 fL (78.0-98.0); Mean Platelet Volume 6.9 fL (7.4-10.4); Platelet Count 268 thou/uL (130-400); RBC Distribution Width 12.2 % (11.5-14.5); Red Blood Cell (RBC) Count 3.72 mill/uL (4.20-5.40); White Blood Cell (WBC) Count 8.6 thou/uL (4.8-10.8)
[2021-10-30 20:18] LABS: INR-International Normal Ratio 1.1; PTT 32.2 sec (22.9-36.1); Prothrombin Time 14.6 sec (12.0-14.7)
[2021-10-30 20:27] LABS: ALT (SGPT) 8 U/L (8-55); AST (SGOT) 14 U/L (5-34); Alkaline Phosphatase 67 U/L (40-110); Anion Gap 13 mmol/L (10-20); BUN (Urea Nitrogen) 23 mg/dL (9.8-20.1); Bilirubin, Total 0.3 mg/dL (0.2-1.2); Calc. Creatinine Clearance 0 mL/min (70-130); Calcium 9.6 mg/dL (7.8-10.44); Carbon Dioxide 22 mmol/L (23-31); Chloride 108 mmol/L (98-107); Globulin 4.8 g/dL (2.4-3.5); Glucose 144 mg/dL (80-115); Potassium 3.9 mmol/L (3.5-5.1); Protein, Total 8.8 g/dL (5.8-8.1); Sodium 139 mmol/L (136-145)
[2021-10-30] MEDS ORDERED: Boostrix 0.5 ML (Tdap) VIAL ONE (21:07)
[2021-10-30] MEDS ORDERED: Fentanyl 100 MCG/2 ML VIAL ONE (21:47)
[2021-10-30] MEDS ORDERED: Acetaminophen 325 MG TAB PO PRN (21:56)
[2021-10-30] MEDS ORDERED: hydrALAZINE 20 MG/ML VIAL SLOW IVP PRN (21:56)
[2021-10-30] MEDS ORDERED: Ondansetron PF 4 MG/2 ML Vial IVP PRN (21:56)
[2021-10-30] MEDS ORDERED: traMADol HCl 50 MG TAB PO PRN ×2 (21:56)
[2021-10-30] MEDS ORDERED: Morphine 4 MG/ML VIAL SLOW IVP PRN (22:07)
[2021-10-30] MEDS ORDERED: Bacitracin 1 PK ONE (22:21)
[2021-10-30 23:56] LABS: SARS-CoV-2 NAA Rapid Test Not Detected (NotDetected)
[2021-10-31] MEDS: Sodium Chloride 0.9% 1,000 ML IV SCH ×3 (00:33→20:25)
[2021-10-31 01:17] VITALS: BMI 31.1
[2021-10-31 04:59] LABS: #Lymphocytes 1.9 thou/uL (1.20-3.40); #Monocytes 0.7 thou/uL (0.11-0.59); #Neutrophils 5.4 thou/uL (1.40-6.50); %Basophils 0.3 % (0.0-1.0); %Eosinophils 0.5 % (0.0-10.0); %Lymphocytes 24.1 % (21.0-51.0); %Monocytes 8.4 % (0.0-10.0); %Neutrophils 66.8 % (42.0-75.0); Hemoglobin 9.4 g/dL (12.0-16.0); Mean Corpuscular HGB CONC 33.2 g/dL (32.0-36.0); Mean Corpuscular Hemoglobin 32.1 pg (27.0-31.0); Mean Corpuscular Volume 96.6 fL (78.0-98.0); Mean Platelet Volume 6.9 fL (7.4-10.4); Platelet Count 221 thou/uL (130-400); RBC Distribution Width 12.1 % (11.5-14.5); Red Blood Cell (RBC) Count 2.92 mill/uL (4.20-5.40)
[2021-10-31 05:18] LABS: INR-International Normal Ratio 1.1; PTT 30.4 sec (22.9-36.1); Prothrombin Time 14.3 sec (12.0-14.7)
[2021-10-31 05:22] LABS: Anion Gap 10 mmol/L (10-20); BUN (Urea Nitrogen) 20 mg/dL (9.8-20.1); Calc. Creatinine Clearance 91 mL/min (70-130); Calcium 8.5 mg/dL (7.8-10.44); Carbon Dioxide 23 mmol/L (23-31); Chloride 110 mmol/L (98-107); Glucose 116 mg/dL (80-115); Potassium 4.1 mmol/L (3.5-5.1); Sodium 139 mmol/L (136-145)
[2021-10-31] MEDS ORDERED: Famotidine/PF 20 mg/2ml Vial SLOW IVP SCH (09:00)
[2021-10-31] MEDS ORDERED: Fentanyl 250 MCG/5 ML VIAL ONE ×3 (09:10→11:25)
[2021-10-31] MEDS ORDERED: Dexmedetomidine 200 MCG/2 ML VIAL ONE (09:10)
[2021-10-31] MEDS ORDERED: ceFAZolin 2 GM/DEX 5% 100 ML BAG ONE (09:19)
[2021-10-31] MEDS ORDERED: Bupivacaine HCl 0.5%/Epinephrine 1:200,000/PF 30 ml Vial ONE (09:40)
[2021-10-31] MEDS ORDERED: PROPOFOL 200 MG/20 ML VIAL ONE (09:40)
[2021-10-31] MEDS ORDERED: Dexamethasone 20 MG/5 ML VIAL ONE (09:40)
[2021-10-31] MEDS ORDERED: PHENYLEPHRINE-NS 100 MCG/ML 10 ML SYRINGE ONE (09:40)
[2021-10-31] MEDS ORDERED: GLYCOPYRROLATE/PF 0.2 MG/ML VIAL ONE (09:40)
[2021-10-31] MEDS ORDERED: Lidocaine 1% PF 5 ML VIAL ONE (09:40)
[2021-10-31] MEDS ORDERED: Rocuronium Bromide 10 MG/ML (10ML VIAL) ONE (09:40)
[2021-10-31] MEDS ORDERED: Ondansetron PF 4 MG/2 ML Vial ONE (09:40)
[2021-10-31] MEDS ORDERED: HYDROcodone/Acetaminophen 10/325 mg Tablet PO PRN ×2 (11:11)
[2021-10-31] MEDS ORDERED: Promethazine HCl 25 MG/ML VIAL IVPB PRN (11:14)
[2021-10-31] MEDS ORDERED: Ondansetron HCl/PF 4 MG/2 ML Vial IVP PRN (11:14)
[2021-10-31] MEDS ORDERED: Promethazine HCl 25 MG/ML VIAL IM PRN (11:14)
[2021-10-31] MEDS ORDERED: TETANUS AND DIPHTHERIA TOX/PF 0.5 ML DISP.SYRIN IM SCH (11:15)
[2021-10-31] MEDS ORDERED: Communication Order-Pharmacy FS SCH (11:15)
[2021-10-31] MEDS: Morphine 4 MG/ML VIAL SLOW IVP PRN ×2 (14:53→20:24)
[2021-10-31] MEDS: Dronedarone HCl 400 MG TAB PO SCH (18:09)
[2021-10-31] MEDS: Folic Acid 1 MG TAB PO SCH (20:24)
[2021-10-31] MEDS: Aspirin 81 mg Enteric Coated Tablet PO SCH (20:25)
[2021-10-31] MEDS ORDERED: FOLIC ACID 400 MCG PO SCH (21:00)
[2021-10-31] MEDS ORDERED: HYDROcodone/Acetaminophen 7.5/325 mg Tablet PO SCH (21:00)
[2021-11-01] MEDS: Morphine 4 MG/ML VIAL SLOW IVP PRN ×2 (03:03→05:48)
[2021-11-01 05:12] LABS: #Lymphocytes 1.8 thou/uL (1.20-3.40); #Monocytes 0.7 thou/uL (0.11-0.59); #Neutrophils 3.5 thou/uL (1.40-6.50); %Basophils 0.1 % (0.0-1.0); %Eosinophils 0.4 % (0.0-10.0); %Lymphocytes 29.6 % (21.0-51.0); %Monocytes 11.4 % (0.0-10.0); %Neutrophils 58.4 % (42.0-75.0); Hemoglobin 7.2 g/dL (12.0-16.0); Mean Corpuscular Hemoglobin 31.4 pg (27.0-31.0); Mean Corpuscular Volume 98.2 fL (78.0-98.0); Mean Platelet Volume 7.3 fL (7.4-10.4); Platelet Count 177 thou/uL (130-400); RBC Distribution Width 12.2 % (11.5-14.5); Red Blood Cell (RBC) Count 2.29 mill/uL (4.20-5.40)
[2021-11-01 05:40] LABS: Anion Gap 9 mmol/L (10-20); BUN (Urea Nitrogen) 15 mg/dL (9.8-20.1); Calc. Creatinine Clearance 102 mL/min (70-130); Calcium 7.9 mg/dL (7.8-10.44); Carbon Dioxide 23 mmol/L (23-31); Chloride 109 mmol/L (98-107); Glucose 111 mg/dL (80-115); Magnesium 1.7 mg/dL (1.6-2.6); Phosphorus 2.9 mg/dL (2.3-4.7); Potassium 3.8 mmol/L (3.5-5.1); Sodium 137 mmol/L (136-145)
[2021-11-01] MEDS: Dronedarone HCl 400 MG TAB PO SCH ×2 (08:29→17:29)
[2021-11-01] MEDS: Folic Acid 1 MG TAB PO SCH (08:34)
[2021-11-01] MEDS: Aspirin 81 mg Enteric Coated Tablet PO SCH (08:35)
[2021-11-01] MEDS: HYDROcodone/Acetaminophen 7.5/325 mg Tablet PO PRN ×2 (08:35→20:43)
[2021-11-01] MEDS ORDERED: Magnesium Sulfate 2 GM in Sodium Chloride 0.9% 100 ML IVPB SCH (09:00)
[2021-11-01] MEDS ORDERED: Magnesium 2 GM/50 ML 2 GM in Premix Bag 1 BAG IVPB SCH (09:15)
[2021-11-01 14:38] LABS: Magnesium 2.1 mg/dL (1.6-2.6)
[2021-11-02] MEDS: Cyclobenzaprine 10 MG TAB PO PRN (01:22)
[2021-11-02] MEDS: HYDROcodone/Acetaminophen 7.5/325 mg Tablet PO PRN ×3 (02:39→21:25)
[2021-11-02 05:49] LABS: Anion Gap 11 mmol/L (10-20); BUN (Urea Nitrogen) 11 mg/dL (9.8-20.1); Calc. Creatinine Clearance 103 mL/min (70-130); Carbon Dioxide 21 mmol/L (23-31); Chloride 108 mmol/L (98-107); Glucose 109 mg/dL (80-115); Phosphorus 2.8 mg/dL (2.3-4.7); Potassium 4.1 mmol/L (3.5-5.1); Sodium 136 mmol/L (136-145)
[2021-11-02 06:43] LABS: #Eosinphils 0.1 thou/uL (0.0-0.7); #Lymphocytes 1.9 thou/uL (1.20-3.40); #Monocytes 0.7 thou/uL (0.11-0.59); #Neutrophils 4.2 thou/uL (1.40-6.50); %Basophils 0.4 % (0.0-1.0); %Eosinophils 0.7 % (0.0-10.0); %Monocytes 10.7 % (0.0-10.0); %Neutrophils 61.1 % (42.0-75.0); Hemoglobin 6.5 g/dL (12.0-16.0); Mean Corpuscular HGB CONC 33.3 g/dL (32.0-36.0); Mean Corpuscular Volume 96.1 fL (78.0-98.0); Mean Platelet Volume 6.9 fL (7.4-10.4); Platelet Count 159 thou/uL (130-400); Red Blood Cell (RBC) Count 2.04 mill/uL (4.20-5.40); White Blood Cell (WBC) Count 6.9 thou/uL (4.8-10.8)
[2021-11-02] MEDS: Ferrous Sulfate 325 MG TAB PO SCH ×2 (08:39→17:52)
[2021-11-02] MEDS: Folic Acid 1 MG TAB PO SCH (08:39)
[2021-11-02] MEDS: Dronedarone HCl 400 MG TAB PO SCH (08:39)
[2021-11-02 15:22] LABS: #Eosinphils 0.1 thou/uL (0.0-0.7); #Lymphocytes 1.9 thou/uL (1.20-3.40); #Monocytes 0.7 thou/uL (0.11-0.59); #Neutrophils 4.2 thou/uL (1.40-6.50); %Basophils 0.7 % (0.0-1.0); %Eosinophils 0.9 % (0.0-10.0); %Lymphocytes 27.2 % (21.0-51.0); %Monocytes 10.7 % (0.0-10.0); %Neutrophils 60.4 % (42.0-75.0); Hemoglobin 7.5 g/dL (12.0-16.0); Mean Corpuscular HGB CONC 30.2 g/dL (32.0-36.0); Mean Corpuscular Hemoglobin 30.3 pg (27.0-31.0); Platelet Count 183 thou/uL (130-400); Red Blood Cell (RBC) Count 2.48 mill/uL (4.20-5.40); White Blood Cell (WBC) Count 6.9 thou/uL (4.8-10.8)
[2021-11-02] MEDS: Flecainide 50 MG TAB PO SCH (21:29)
[2021-11-03] MEDS: HYDROcodone/Acetaminophen 7.5/325 mg Tablet PO PRN ×3 (03:57→22:21)
[2021-11-03 07:31] LABS: #Eosinphils 0.1 thou/uL (0.0-0.7); #Monocytes 0.7 thou/uL (0.11-0.59); #Neutrophils 3.7 thou/uL (1.40-6.50); %Basophils 0.7 % (0.0-1.0); %Eosinophils 2.2 % (0.0-10.0); %Lymphocytes 30.8 % (21.0-51.0); %Monocytes 9.9 % (0.0-10.0); %Neutrophils 56.4 % (42.0-75.0); Hemoglobin 6.8 g/dL (12.0-16.0); Mean Corpuscular HGB CONC 32.5 g/dL (32.0-36.0); Mean Corpuscular Hemoglobin 31.1 pg (27.0-31.0); Mean Corpuscular Volume 95.5 fL (78.0-98.0); Mean Platelet Volume 7.1 fL (7.4-10.4); Platelet Count 178 thou/uL (130-400); RBC Distribution Width 12.7 % (11.5-14.5); White Blood Cell (WBC) Count 6.6 thou/uL (4.8-10.8)
[2021-11-03] MEDS: Ferrous Sulfate 325 MG TAB PO SCH ×2 (08:35→18:48)
[2021-11-03] MEDS: Flecainide 50 MG TAB PO SCH ×2 (08:35→20:12)
[2021-11-03] MEDS: Folic Acid 1 MG TAB PO SCH (08:35)
[2021-11-03] MEDS: PHOS-NAK 1 PKT PACK PO SCH (08:35)
[2021-11-03] MEDS ORDERED: Iopamidol 370 76% 100 ML VIAL ONE (12:19)
[2021-11-03] MEDS: Cyclobenzaprine 10 MG TAB PO PRN (14:44)
[2021-11-03] MEDS: Ascorbic Acid 500 mg Chewable Tablet PO SCH (18:49)
[2021-11-03] MEDS: Senokot S 8.6-50 MG TAB PO SCH (20:12)
[2021-11-04 05:28] LABS: #Eosinphils 0.2 thou/uL (0.0-0.7); #Lymphocytes 1.6 thou/uL (1.20-3.40); #Monocytes 0.6 thou/uL (0.11-0.59); #Neutrophils 3.4 thou/uL (1.40-6.50); %Basophils 0.4 % (0.0-1.0); %Eosinophils 3.1 % (0.0-10.0); %Lymphocytes 27.4 % (21.0-51.0); %Monocytes 10.5 % (0.0-10.0); %Neutrophils 58.6 % (42.0-75.0); Hemoglobin 8.1 g/dL (12.0-16.0); Mean Corpuscular HGB CONC 32.4 g/dL (32.0-36.0); Mean Corpuscular Hemoglobin 30.9 pg (27.0-31.0); Mean Corpuscular Volume 95.4 fL (78.0-98.0); Mean Platelet Volume 6.6 fL (7.4-10.4); Platelet Count 233 thou/uL (130-400); RBC Distribution Width 12.5 % (11.5-14.5); Red Blood Cell (RBC) Count 2.63 mill/uL (4.20-5.40); White Blood Cell (WBC) Count 5.7 thou/uL (4.8-10.8)
[2021-11-04] MEDS: HYDROcodone/Acetaminophen 7.5/325 mg Tablet PO PRN ×3 (06:22→20:23)
[2021-11-04 07:34] LABS: Anion Gap 11 mmol/L (10-20); BUN (Urea Nitrogen) 22 mg/dL (9.8-20.1); Calc. Creatinine Clearance 103 mL/min (70-130); Calcium 8.5 mg/dL (7.8-10.44); Carbon Dioxide 23 mmol/L (23-31); Chloride 108 mmol/L (98-107); Glucose 98 mg/dL (80-115); Magnesium 1.9 mg/dL (1.6-2.6); Phosphorus 3.5 mg/dL (2.3-4.7); Potassium 3.9 mmol/L (3.5-5.1); Sodium 138 mmol/L (136-145)
[2021-11-04] MEDS ORDERED: PHOS-NAK 1 PKT PACK PO SCH (08:00)
[2021-11-04] MEDS ORDERED: Magnesium 2 GM/50 ML 2 GM in Premix Bag 1 BAG IVPB SCH (08:00)
[2021-11-04] MEDS: Ferrous Sulfate 325 MG TAB PO SCH ×2 (08:20→16:37)
[2021-11-04] MEDS: Folic Acid 1 MG TAB PO SCH (08:20)
[2021-11-04] MEDS: Polyethylene Glycol 3350 17 GM Packet PO SCH (08:20)
[2021-11-04] MEDS: Senokot S 8.6-50 MG TAB PO SCH ×2 (08:21→20:22)
[2021-11-04] MEDS: PHOS-NAK 1 PKT PACK PO SCH (08:21)
[2021-11-04] MEDS: Ascorbic Acid 500 mg Chewable Tablet PO SCH ×2 (08:21→16:37)
[2021-11-04] MEDS: Flecainide 50 MG TAB PO SCH ×2 (08:21→20:22)
[2021-11-04] MEDS: Cyclobenzaprine 10 MG TAB PO PRN (16:37)
[2021-11-05] MEDS: HYDROcodone/Acetaminophen 7.5/325 mg Tablet PO PRN ×3 (02:59→13:49)
[2021-11-05 05:19] LABS: #Eosinphils 0.2 thou/uL (0.0-0.7); #Lymphocytes 1.7 thou/uL (1.20-3.40); #Monocytes 0.5 thou/uL (0.11-0.59); #Neutrophils 2.7 thou/uL (1.40-6.50); %Basophils 0.7 % (0.0-1.0); %Eosinophils 4.3 % (0.0-10.0); %Lymphocytes 32.9 % (21.0-51.0); Hemoglobin 8.2 g/dL (12.0-16.0); Mean Corpuscular HGB CONC 33.1 g/dL (32.0-36.0); Mean Corpuscular Hemoglobin 31.7 pg (27.0-31.0); Mean Corpuscular Volume 95.9 fL (78.0-98.0); Mean Platelet Volume 6.4 fL (7.4-10.4); Platelet Count 271 thou/uL (130-400); RBC Distribution Width 12.4 % (11.5-14.5); Red Blood Cell (RBC) Count 2.57 mill/uL (4.20-5.40); White Blood Cell (WBC) Count 5.1 thou/uL (4.8-10.8)
[2021-11-05] MEDS: Folic Acid 1 MG TAB PO SCH (09:33)
[2021-11-05] MEDS: Ferrous Sulfate 325 MG TAB PO SCH (09:34)
[2021-11-05] MEDS: Ascorbic Acid 500 mg Chewable Tablet PO SCH (09:34)
[2021-11-05] MEDS: Senokot S 8.6-50 MG TAB PO SCH (09:34)
[2021-11-05] MEDS: Flecainide 50 MG TAB PO SCH (09:34)
[2021-11-05] MEDS: Polyethylene Glycol 3350 17 GM Packet PO SCH (09:35)
[2021-11-05 12:02] VITALS: BP 104/67; TEMP 98.5
[2021-11-05] MEDS ORDERED: Non-Formulary Item 1 EACH (Rivaroxaban [Xarelto] 20 MG Tablet) PO SCH (21:00)
[2021-11-05] MEDS ORDERED: Rivaroxaban 10 MG TAB PO SCH (21:00)
== END 2021-11-05 14:38 | DRG 481 ==
LOC: ERS 19:28 → SJJU 21:56
PROVIDERS: ADMIT Surgery; ATTEND Surgery
PROC: 0QH936Z Insertion of Intramedullary Internal Fixation Device into Left Femoral Shaft, Percutaneous Approach (ICD-10-PCS; principal; 2021-10-31)
PROC: 3E03329 Introduction of Other Anti-infective into Peripheral Vein, Percutaneous Approach (ICD-10-PCS; 2021-10-31)
PROC: 30233N1 Transfusion of Nonautologous Red Blood Cells into Peripheral Vein, Percutaneous Approach (ICD-10-PCS; 2021-11-02)
DX: S72.492A Other fracture of lower end of left femur, initial encounter for closed fracture (principal); D62 Acute posthemorrhagic anemia; T24.212A Burn of second degree of left thigh, initial encounter; T31.0 Burns involving less than 10% of body surface; Z20.822 Contact with and (suspected) exposure to COVID-19; I48.91 Unspecified atrial fibrillation; Z96.642 Presence of left artificial hip joint; G89.29 Other chronic pain; I10 Essential (primary) hypertension; K21.9 Gastro-esophageal reflux disease without esophagitis; M81.0 Age-related osteoporosis without current pathological fracture; X16.XXXA Contact with hot heating appliances, radiators and pipes, initial encounter; Z79.01 Long term (current) use of anticoagulants; Z79.899 Other long term (current) drug therapy; Z91.040 Latex allergy status; Z88.1 Allergy status to other antibiotic agents; Z88.2 Allergy status to sulfonamides; Z88.8 Allergy status to other drugs, medicaments and biological substances
CPT/HCPCS: 29505; 36415; 36416; 36430; 70450; 71045; 71260; 72125; 74177; 75635; 76000; 80048; 80053; 83735; 84100; 85025; 85610; 85730; 86850; 86900; 86901; 90471; 90715; 93005; 93923; 96374; C1713; G0390; J1100; J2270; J2405; J2704; J3010; J3475; J7050; P9016; Q9967; U0002

== ENCOUNTER 2023-07-27 13:01 | Outpatient (CLI) | payer MEDICARE | END 2023-07-27 13:02 | disposition home or self-care (01) | LOC: SCSRAD 13:01 | PROVIDERS: ATTEND Internal Medicine Rheumatology | DX: M81.0 Age-related osteoporosis without current pathological fracture (principal); M47.814 Spondylosis without myelopathy or radiculopathy, thoracic region | CPT/HCPCS: 72072 ==

== ENCOUNTER 2023-08-09 15:32 | Outpatient (CLI) | payer MEDICARE | END 2023-08-09 15:33 | disposition home or self-care (01) | LOC: SCSRAD 15:32 | PROVIDERS: ATTEND Preventive Medicine Undersea and Hyperbaric Medicine | DX: I87.2 Venous insufficiency (chronic) (peripheral) (principal); L97.329 Non-pressure chronic ulcer of left ankle with unspecified severity; L97.319 Non-pressure chronic ulcer of right ankle with unspecified severity ==

== ENCOUNTER 2024-05-26 16:40 | Inpatient (IN) | payer MEDICARE, OTHER ==
[2024-05-26 18:56] VITALS: BMI 29.8
[2024-05-26] MEDS ORDERED: Acetaminophen 650 MG Suppository PR PRN (20:28)
[2024-05-26] MEDS ORDERED: Ondansetron PF 4 MG/2 ML Vial IVP PRN (20:28)
[2024-05-26] MEDS ORDERED: Ondansetron ODT 4 MG TAB PO PRN (20:28)
[2024-05-26 20:46] LABS: #Basophils 0.04 10x3/uL (0.0-0.2); %Basophils 0.2 % (0.0-1.0); %Eosinophils 0.3 % (0.0-10.0); %Lymphocytes 11.2 % (21.0-51.0); %Monocytes 4.6 % (0.0-10.0); %Neutrophils 83.1 % (42.0-75.0); Hematocrit 30.6 % (36.0-47.0); Hemoglobin 9.7 g/dL (12.0-16.0); Mean Corpuscular HGB CONC 31.7 g/dL (32.0-36.0); Mean Corpuscular Hemoglobin 29.1 pg (27.0-31.0); Mean Corpuscular Volume 91.9 fL (78.0-98.0); Mean Platelet Volume 9.2 fL (7.4-10.4); Platelet Count 238 10x3/uL (130-400); RBC Distribution Width 14.9 % (11.5-14.5); Red Blood Cell (RBC) Count 3.33 mill/uL (4.20-5.40)
[2024-05-26 21:00] LABS: ALT (SGPT) 7 U/L (8-55); AST (SGOT) 11 U/L (5-34); Albumin 2.9 g/dL (3.4-4.8); Alkaline Phosphatase 62 U/L (40-110); Anion Gap 11 mmol/L (10-20); BUN (Urea Nitrogen) 18 mg/dL (9.8-20.1); Bilirubin, Total 0.7 mg/dL (0.2-1.2); Calc. Creatinine Clearance 93 mL/min (70-130); Calcium 8.4 mg/dL (7.8-10.44); Carbon Dioxide 25 mmol/L (23-31); Chloride 105 mmol/L (98-107); Estimated GFR 70; Globulin 4.1 g/dL (2.4-3.5); Glucose 100 mg/dL (80-115); Potassium 3.9 mmol/L (3.5-5.1); Sodium 137 mmol/L (136-145)
[2024-05-26 21:05] LABS: Troponin I 0.021 ng/mL (< 0.028)
[2024-05-26] MEDS ORDERED: Ibuprofen 200 MG TAB PO PRN (21:21)
[2024-05-26] MEDS: Famotidine 20 MG TAB PO SCH (22:19)
[2024-05-26] MEDS: Famotidine/PF 20 mg/2ml Vial SLOW IVP SCH (22:19)
[2024-05-26] MEDS: Vancomycin (BATCH) 2.5 GM in Premix 1 BAG IVPB SCH (22:20)
[2024-05-26] MEDS: HYDROcodone/Acetaminophen 5/325 mg Tablet PO PRN (22:30)
[2024-05-26 23:29] LABS: Lactic Acid 1.04 mmol/L (0.5-2.2)
[2024-05-27 00:29] LABS: Troponin I 0.023 ng/mL (< 0.028)
[2024-05-27 05:43] LABS: Anion Gap 15 mmol/L (10-20); BUN (Urea Nitrogen) 14 mg/dL (9.8-20.1); Calc. Creatinine Clearance 101 mL/min (70-130); Calcium 8.5 mg/dL (7.8-10.44); Carbon Dioxide 21 mmol/L (23-31); Chloride 108 mmol/L (98-107); Estimated GFR 77; Glucose 74 mg/dL (80-115); Sodium 140 mmol/L (136-145)
[2024-05-27] MEDS: Vancomycin 1 GM in Premix 1 BAG IVPB SCH (08:12)
[2024-05-27] MEDS ORDERED: Vancomycin (BATCH) 1.5 GM in Premix 1 BAG IVPB SCH (09:00)
[2024-05-27 09:22] LABS: Hemoglobin A1c 5.2 % (4.0-6.0)
[2024-05-27 11:06] LABS: Bacteria/HPF None Seen HPF (None Seen); Bilirubin Negative (Negative); Blood, Urine 1+ (Negative); CAUTI Indications for Culture Fever or rigors; Clarity Clear (Clear); Glucose, Urine (Dipstick) Normal (Negative); Ketone, Urine 40 mg/dL (Negative); Leukocyte Negative Leu/uL (Negative); Nitrite Negative (Negative); Protein, Urine (Dipstick) 20 mg/dL (Neg-Trace); RBC/HPF 0-3 HPF (0-3); Specific Gravity, Urine 1.018 (1.002-1.036); Squamous Epithelial 0-3 HPF (0-3); Urobilinogen Normal mg/dL (Less than 2); WBC/HPF 0-3 HPF (0-3); pH, Urine 7.5 (5.0-9.0)
[2024-05-27 11:16] LABS: Urine Culture Reflex No No
[2024-05-27] MEDS: Acetaminophen 325 MG TAB PO PRN (11:19)
[2024-05-27] MEDS: Cefepime 2 GM in Sodium Chloride 0.9% 100 ML IVPB SCH (15:13)
[2024-05-27] MEDS: traZODone HCl 50 MG TAB PO SCH (22:01)
[2024-05-28 07:05] LABS: #Basophils 0.03 10x3/uL (0.0-0.2); %Basophils 0.2 % (0.0-1.0); %Eosinophils 1.6 % (0.0-10.0); %Lymphocytes 11.1 % (21.0-51.0); %Monocytes 3.3 % (0.0-10.0); %Neutrophils 82.9 % (42.0-75.0); Mean Corpuscular HGB CONC 31.3 g/dL (32.0-36.0); Mean Corpuscular Hemoglobin 28.3 pg (27.0-31.0); Mean Corpuscular Volume 90.7 fL (78.0-98.0); Mean Platelet Volume 9.7 fL (7.4-10.4); Platelet Count 230 10x3/uL (130-400); RBC Distribution Width 15.1 % (11.5-14.5); Red Blood Cell (RBC) Count 3.53 mill/uL (4.20-5.40)
[2024-05-28 07:42] LABS: ALT (SGPT) 7 U/L (8-55); AST (SGOT) 12 U/L (5-34); Albumin 2.8 g/dL (3.4-4.8); Alkaline Phosphatase 68 U/L (40-110); Anion Gap 16 mmol/L (10-20); BUN (Urea Nitrogen) 11 mg/dL (9.8-20.1); Bilirubin, Direct 0.4 mg/dL (0.1-0.3); Bilirubin, Total 0.9 mg/dL (0.2-1.2); Calc. Creatinine Clearance 96 mL/min (70-130); Calcium 8.6 mg/dL (7.8-10.44); Carbon Dioxide 20 mmol/L (23-31); Chloride 107 mmol/L (98-107); Estimated GFR 73; Glucose 83 mg/dL (80-115); Iron 18 ug/dL (50-170); Iron Binding Capacity, Total 215 mcg/dL (265-497); Magnesium 1.8 mg/dL (1.6-2.6); Potassium 3.5 mmol/L (3.5-5.1); Protein, Total 7.7 g/dL (5.8-8.1); Sodium 139 mmol/L (136-145)
[2024-05-28 07:43] LABS: Iron 18 ug/dL (50-170); Iron Binding Capacity, Total 215 mcg/dL (265-497)
[2024-05-28 08:10] LABS: Ferritin 184.91 ng/mL (10-291)
[2024-05-28] MEDS: Floranex 1 GM Packet PO SCH (08:21)
[2024-05-28] MEDS: Loratadine 10 MG TAB PO SCH (08:21)
[2024-05-28] MEDS: diphenhydrAMINE 25 MG CAP PO PRN (10:08)
[2024-05-28] MEDS: Rivaroxaban 10 MG TAB PO SCH (17:32)
[2024-05-28] MEDS: Flecainide 50 MG TAB PO SCH (20:29)
[2024-05-28] MEDS ORDERED: Non-Formulary Item 1 EACH (Rivaroxaban [Xarelto] 20 MG Tablet) PO SCH (21:00)
[2024-05-29 05:42] LABS: #Basophils Less than 0.03 10x3/uL (0.0-0.2); %Basophils 0.1 % (0.0-1.0); %Eosinophils 2.8 % (0.0-10.0); %Lymphocytes 14.9 % (21.0-51.0); %Monocytes 3.9 % (0.0-10.0); %Neutrophils 77.6 % (42.0-75.0); Hematocrit 31.5 % (36.0-47.0); Mean Corpuscular HGB CONC 31.7 g/dL (32.0-36.0); Mean Corpuscular Hemoglobin 28.7 pg (27.0-31.0); Mean Corpuscular Volume 90.5 fL (78.0-98.0); Mean Platelet Volume 9.9 fL (7.4-10.4); Platelet Count 249 10x3/uL (130-400); RBC Distribution Width 15.1 % (11.5-14.5); Red Blood Cell (RBC) Count 3.48 mill/uL (4.20-5.40)
[2024-05-29 06:01] LABS: Anion Gap 16 mmol/L (10-20); BUN (Urea Nitrogen) 12 mg/dL (9.8-20.1); Calc. Creatinine Clearance 90 mL/min (70-130); Calcium 8.6 mg/dL (7.8-10.44); Carbon Dioxide 21 mmol/L (23-31); Chloride 107 mmol/L (98-107); Estimated GFR 67; Glucose 88 mg/dL (80-115); Magnesium 1.9 mg/dL (1.6-2.6); Potassium 3.5 mmol/L (3.5-5.1); Sodium 140 mmol/L (136-145)
[2024-05-29] MEDS: Magnesium 2 GM/50 ML(in water) 2 GM in Premix 1 BAG IVPB SCH (06:34)
[2024-05-29] MEDS ORDERED: Amoxicillin/Potassium Clav 875 MG TAB PO SCH (19:00)
[2024-05-29] MEDS: Amoxicillin/Potassium Clav 875 MG TAB PO SCH (19:10)
[2024-05-29] MEDS: Ciprofloxacin 500 MG TAB PO SCH (20:21)
[2024-05-30 05:04] LABS: #Basophils 0.03 10x3/uL (0.0-0.2); %Basophils 0.3 % (0.0-1.0); %Eosinophils 2.1 % (0.0-10.0); %Monocytes 6.7 % (0.0-10.0); %Neutrophils 72.4 % (42.0-75.0); Hematocrit 27.4 % (36.0-47.0); Hemoglobin 8.7 g/dL (12.0-16.0); Mean Corpuscular HGB CONC 31.8 g/dL (32.0-36.0); Mean Corpuscular Hemoglobin 28.4 pg (27.0-31.0); Mean Corpuscular Volume 89.5 fL (78.0-98.0); Mean Platelet Volume 9.9 fL (7.4-10.4); Platelet Count 240 10x3/uL (130-400); RBC Distribution Width 14.8 % (11.5-14.5); Red Blood Cell (RBC) Count 3.06 mill/uL (4.20-5.40)
[2024-05-30 05:20] LABS: Anion Gap 14 mmol/L (10-20); BUN (Urea Nitrogen) 13 mg/dL (9.8-20.1); Calc. Creatinine Clearance 89 mL/min (70-130); Calcium 8.1 mg/dL (7.8-10.44); Carbon Dioxide 20 mmol/L (23-31); Chloride 108 mmol/L (98-107); Estimated GFR 66; Glucose 88 mg/dL (80-115); Magnesium 2.1 mg/dL (1.6-2.6); Potassium 3.6 mmol/L (3.5-5.1); Sodium 138 mmol/L (136-145)
[2024-05-30 11:59] VITALS: TEMP 98.4
[2024-05-30 15:11] VITALS: BP 141/62
== END 2024-05-30 15:59 | disposition home or self-care (01) | DRG 540 ==
LOC: 2SW 16:40 → OBSVTOIN 05-27 13:37
PROVIDERS: ADMIT Internal Medicine; ATTEND Student in an Organized Health Care Education/Training Program
DX: M86.8X7 Other osteomyelitis, ankle and foot (principal); I48.20 Chronic atrial fibrillation, unspecified; L03.115 Cellulitis of right lower limb; L03.116 Cellulitis of left lower limb; E66.9 Obesity, unspecified; R53.81 Other malaise; I95.9 Hypotension, unspecified; Z96.642 Presence of left artificial hip joint; K21.9 Gastro-esophageal reflux disease without esophagitis; M81.0 Age-related osteoporosis without current pathological fracture; D64.9 Anemia, unspecified; Z68.29 Body mass index [BMI] 29.0-29.9, adult; Z88.0 Allergy status to penicillin; Z88.1 Allergy status to other antibiotic agents; Z88.8 Allergy status to other drugs, medicaments and biological substances; Z91.040 Latex allergy status; Z79.899 Other long term (current) drug therapy; Z79.891 Long term (current) use of opiate analgesic; Z79.01 Long term (current) use of anticoagulants
CPT/HCPCS: 36415; 51701; 71045; 71275; 80048; 80053; 80076; 80202; 81001; 82607; 82728; 83036; 83540; 83550; 83605; 83735; 84484; 85025; 85046; 86850; 86900; 86901; 87040; 87086; 93005; 93306; 96374; 96375; 96376; 97139; G0378; J0692; J3370; J3370-JW; J3475; J3490; Q9967; U0002

== ENCOUNTER 2024-06-14 13:16 | Outpatient (CLI) | payer MEDICARE, OTHER | END 2024-06-14 13:17 | disposition home or self-care (01) | LOC: SCSRAD 13:16 | PROVIDERS: ATTEND Student in an Organized Health Care Education/Training Program | DX: M86.9 Osteomyelitis, unspecified (principal) ==

== ENCOUNTER 2024-06-27 12:59 | Outpatient (CLI) | payer MEDICARE | END 2024-06-27 13:00 | disposition home or self-care (01) | LOC: SCSRAD 12:59 | PROVIDERS: ATTEND Student in an Organized Health Care Education/Training Program | DX: M86.172 Other acute osteomyelitis, left ankle and foot (principal); M81.0 Age-related osteoporosis without current pathological fracture ==

== ENCOUNTER 2025-04-24 10:37 | Outpatient (CLI) | payer MEDICARE, OTHER | END 2025-04-24 10:38 | disposition home or self-care (01) | LOC: BICMAMMO 10:37 | PROVIDERS: ATTEND Internal Medicine Rheumatology | DX: M81.0 Age-related osteoporosis without current pathological fracture (principal) | CPT/HCPCS: 77080 ==

== ENCOUNTER 2025-07-31 10:42 | Outpatient (CLI) | payer MEDICARE, OTHER ==
[2025-07-31 12:06] LABS: #Basophils 0.05 10x3/uL (0.0-0.2); #Eosinophils 0.19 10x3/uL (0.0-0.7); #Monocytes 0.55 10x3/uL (0.11-0.59); #Neutrophils 3.00 10x3/uL (1.40-6.50); %Basophils 0.8 % (0.0-1.0); %Eosinophils 3.1 % (0.0-10.0); %Lymphocytes 37.2 % (21.0-51.0); %Monocytes 9.1 % (0.0-10.0); %Neutrophils 49.6 % (42.0-75.0); Hematocrit 31.0 % (36.0-47.0); Hemoglobin 9.3 g/dL (12.0-16.0); Mean Corpuscular Hemoglobin 27.8 pg (27.0-31.0); Mean Corpuscular Volume 92.8 fL (78.0-98.0); Platelet Count 287 10x3/uL (130-400); Red Blood Cell (RBC) Count 3.34 mill/uL (4.20-5.40); White Blood Cell (WBC) Count 6.05 10x3/uL (4.8-10.8)
[2025-07-31 12:12] LABS: INR-International Normal Ratio 1.1; Prothrombin Time 14.4 sec (12.0-14.7)
[2025-07-31 12:13] LABS: PTT 33.4 sec (22.9-36.1)
[2025-07-31 12:15] LABS: Anion Gap 12 mmol/L (10-20); BUN (Urea Nitrogen) 17 mg/dL (9.8-20.1); Calc. Creatinine Clearance 0 mL/min (70-130); Calcium 9.0 mg/dL (7.8-10.44); Carbon Dioxide 24 mmol/L (23-31); Chloride 107 mmol/L (98-107); Glucose 84 mg/dL (83-110); Potassium 4.1 mmol/L (3.5-5.1); Sodium 139 mmol/L (136-145)
== END 2025-07-31 10:43 | disposition home or self-care (01) ==
LOC: LABBT 10:42
PROVIDERS: ATTEND Internal Medicine Cardiovascular Disease
DX: Z01.818 Encounter for other preprocedural examination (principal); I48.19 Other persistent atrial fibrillation; Z91.81 History of falling
CPT/HCPCS: 80048; 85025; 85610; 85730; 93005; 93010

== ENCOUNTER 2025-08-07 05:38 | Day surgery (SDC) | payer MEDICARE, OTHER ==
[2025-07-31 11:17] VITALS: BMI 24.5
== END 2025-08-07 09:17 | disposition home or self-care (01) ==
LOC: SDC 05:38
PROVIDERS: ATTEND Internal Medicine Cardiovascular Disease
PROC: B245ZZ4 Ultrasonography of Left Heart, Transesophageal (ICD-10-PCS; principal; 2025-08-07)
DX: I48.19 Other persistent atrial fibrillation (principal); I10 Essential (primary) hypertension; I87.2 Venous insufficiency (chronic) (peripheral); I87.331 Chronic venous hypertension (idiopathic) with ulcer and inflammation of right lower extremity; K57.91 Diverticulosis of intestine, part unspecified, without perforation or abscess with bleeding; D64.9 Anemia, unspecified; Z88.0 Allergy status to penicillin; Z88.2 Allergy status to sulfonamides; Z88.1 Allergy status to other antibiotic agents; Z88.5 Allergy status to narcotic agent; Z88.8 Allergy status to other drugs, medicaments and biological substances; Z91.040 Latex allergy status
CPT/HCPCS: 93312